=== PATIENT | female | born 1960 | race Caucasian/White ===

== ENCOUNTER 2019-01-07 17:38 | Inpatient (IN) | payer OTHER ==
[~2019-01-07] VITALS: Ht 167.6 cm; Wt 56.5 kg
[~2019-01-07 17:38] MED LIST: ATORVASTATIN CA20 M1 PO; DIVALPROEX SOD125 M1 PO; FLUVOXAMINE MA100 MG PO; FLUVOXAMINE50 MG PO; LISINOPRIL10 M1 PO; MEMANTINE HCL10 MG PO; RIVASTIGMINE1 EACH T; SEROQUEL25 MG PO; VITAMIN D32000 UNI1 PO
[2019-01-07 17:39] VITALS: BP 100/51
[2019-01-07] MEDS ORDERED: DEPAKOTE DR500 MG PO (18:10)
[2019-01-07] MEDS ORDERED: EXELON1 EAC1 T (18:11)
[2019-01-07 18:25] LABS: BASO % 0.4 % (0.0-1.0); EOS # 0.1 10*3/uL (0.0-0.4); EOS % 0.9 % (1.0-4.0); HEMATOCRIT 35.6 % (37.0-47.0); HEMOGLOBIN 11.8 g/dl (12.0-16.0); LYMPH % 26.3 % (27.0-41.0); MEAN CELL VOLUME 100.6 fl (81.0-99.0); MEAN CORPUSCULAR HGB 33.3 pg (27.0-31.0); MEAN CORPUSCULAR HGB CONC 33.1 g/dl (33.0-37.0); MONO # 0.7 10*3/uL (0.1-1.0); MONO % 8.8 % (3.0-9.0); NEUT # 4.8 10*3/uL (2.3-7.9); NEUT % 62.6 % (47.0-73.0); PLATELET COUNT AUTOMATED 299 10*3/uL (130-400); RED BLOOD COUNT 3.54 10*6/uL (4.10-5.10); RED CELL DISTRI WIDTH 12.2 % (0-14.5); WHITE BLOOD COUNT 7.6 10*3/uL (4.8-10.8)
[2019-01-07 18:40] LABS: ACT PARTIAL THROMBO TIME 26.3 SECONDS (20.0-32.1)
[2019-01-07 18:43] LABS: ALKALINE PHOSPHATASE 82 U/L (45-117); BUN 10 mg/dl (7-24); CHLORIDE 104 mmol/L (98-107); CREATININE 0.67 mg/dL (0.55-1.02); LIPASE 103 U/L (73-393); POTASSIUM 4.2 mmol/L (3.5-5.1); SGOT/AST 27 IU/L (3-35); SGPT/ALT 15 U/L (12-78); SODIUM 139 mmol/L (136-145); TOTAL PROTEIN 6.6 gm/dL (6.4-8.2)
[2019-01-07 18:48] LABS: ACETAMINOPHEN (TYLENOL) < 5.0 ug/ml (10-30); ETHYL ALCOHOL < 3.0 mg/dl (<3); TROPONIN I < 0.015 ng/ml (<0.045)
--- NOTE | 2019-01-07 21:40 | NUR ---
Straight cath for urine specimen obtianed with assits of TARA Hampton. Depend changed and warm blankets provided. Tolerated well. Urine sent.
[2019-01-07 21:50] LABS: BILIRUBIN NEGATIVE (NEGATIVE); BLOOD 1+ (NEGATIVE); CLARITY SL CLOUDY (CLEAR); COLOR YELLOW (YELLOW); GLUCOSE NEGATIVE (NEGATIVE); KETONE NEGATIVE (NEGATIVE); LEUKO ESTERASE 3+ (NEGATIVE); NITRITE NEGATIVE (NEGATIVE); PH 6.5 (5.0-9.0); SPECIFIC GRAVITY 1.015 (1.005-1.030); UROBILINOGEN 0.2 E.U./dl (0.2-1.0)
[2019-01-07 22:05] LABS: BACTERIA 2+
[2019-01-07 22:06] LABS: WBC 21-30 wbc/hpf (0-5)
[2019-01-07 22:11] LABS: URINE AMPHETAMINES < 1000 (1000ng/ml); URINE BARBITURATES < 200 (200ng/ml); URINE BENZODIAZEPINES < 200 (200ng/ml); URINE CANNABINOIDS (THC) < 50 (50ng/ml); URINE COCAINE < 300 (300ng/ml); URINE METHADONE < 300 (300ng/ml); URINE OPIATES < 300 (300ng/ml)
[2019-01-07 22:15] LABS: URINE PHENCYCLIDINE < 25 (25ng/ml)
--- NOTE | 2019-01-07 22:59 | NUR ---
ATTEMPTED TO REACH U TO ADVISE READY FOR PATIENT TO BE TRANSPORTED.
[2019-01-07 23:04] VITALS: BP 102/56
--- NOTE | 2019-01-07 23:20 | NUR ---
Report to [facility]. Bed 314-2 for intermittent explosive disorder under Dr Singer.
[2019-01-07] MEDS ORDERED: ZOLOFT25 MG PO (23:32)
[2019-01-07] MEDS ORDERED: ARICEPT10 M1 PO (23:33)
[2019-01-07] MEDS ORDERED: COGENTIN0.5 MG PO (23:35)
[2019-01-07] MEDS ORDERED: DEPAKOTE SPRIN125 MG PO (23:38)
[2019-01-07] MEDS ORDERED: REMERON15 M2 PO (23:39)
[2019-01-07] MEDS ORDERED: HYDROXYZINE HCL25 MG PO (23:41)
[2019-01-07] MEDS ORDERED: COLACE100 MG PO (23:42)
[2019-01-07] MEDS ORDERED: CLARITIN10 MG PO (23:43)
[2019-01-07] MEDS ORDERED: TUSSIN DM 10 M237 M1 PO (23:45)
[2019-01-07] MEDS ORDERED: HALDOL5 MG/1 ML IM (23:47)
--- NOTE | 2019-01-07 23:50 | NUR ---
BEATRIZERIC THAKKAR a 58 year old F admitted via stretcher from the EMERGENCY ROOM as a voluntary admission PER KACIE, KARL HENDERSON. Arrived on unit at 2345. ALLERGIES: NKA. Vital signs are: 98.3-70-16 126/65. VERBAL CONSENT RECEIVED PRIOR TO ADMISSION FROM [facility] FOR CONSENT TO VOLUNTARY ADMISSION & HOSPITALIZATION, The Authorization For The Release of Medical Information, Hospitalization, Consent and Release Forms/Receipt of Rights, Acknowledgement of Advance Directive Information, Behavioral Health Consent Form, and Informed Consent of Medications. Admitted under the services of Dr. CARSON GROSSNIGEL WITH ADMITTING DIAGNOSIS OF INTERMITTENT EXPLOSIVE DISORDER. A search was conducted and hazardous articles were removed. Client was oriented to the unit. PT WAS MEDICATED WITH 2 MG ATIVAN IM IN ER TO OBTAIN URINE VIA STRAIGHT CATH. MILDLY SEDATED ON ADMISSION. PT IN & OUT OF ORIENTATION TO SELF. UNABLE TO ANSWER QUESTIONS OR COMPLETE ANY ADMISSION FORMS OR MINI MENTAL STATUS ASSESSMENT. JUST SMILES WHILE STARING AT STAFF. PER ER REPORT, PT WAS ALERT TO SELF AT TIMES, WALKING AROUND EARLIER & CONFUSED. RESISTANT AT TIMES & FOLLOWS SIMPLE COMMANDS AT TIME. ALSO STATED THAT PER NEWS DIRECTOR, THIS IS BASELINE FOR PT & SHE IS JUST A LITTLE OFF. PT WAS ALSO MEDICATED WITH CEFTIN IM IN ER FOR UTI. PT WAS INCONTINENT OF URINE WHEN SHE ARRIVED ON UNIT. KERRI BOLDEN RN
[2019-01-08 01:01] VITALS: BP 126/65
--- NOTE | 2019-01-08 01:49 | NUR ---
DR REES NOTIFIED OF MEDICAL CONSULT & MED REC READY FOR REVIEW. CONSULT TO BE PLACED UNDER DR BOLIVAR.
--- NOTE | 2019-01-08 02:00 | NUR ---
DR REES ON UNIT TO SEE PT FOR MEDICAL CONSULT
--- NOTE | 2019-01-08 06:03 | NUR ---
PT HAS SLEPT SINCE ARRIVAL ON THE UNIT. SHE HAS HAD A FEW VERY BRIEF AWAKENINGS OF MOVING AROUND IN BED.
[2019-01-08 07:17] LABS: CHOLESTEROL 128 mg/dL (<200); HDL CHOLESTEROL 48 mg/dl (40-60); LDL CHOLESTEROL 69 mg/dL (9-159); TRIGLYCERIDES 55 mg/dl (<150); VLDL CHOLESTEROL 11 mg/dL (6-40)
[2019-01-08 07:49] VITALS: BP 118/62
--- NOTE | 2019-01-08 08:15 | NUR ---
Treatment Plan meeting with Dr. Singer, RN, AT, and Process Excellence Manager. Plan for discharge next week. Pt. came to [facility] from [facility] [place]. Will reach out to facility today to discuss discharge Plans.
--- NOTE | 2019-01-08 10:19 | NUR ---
Met with pt this AM who was non-verbal. This FRAMING AND HANGING-S was unable to gain pt's attention. Pt did not make eye contact nor respond in any way to this medical writer's attempt at engaging pt in conversation.
--- NOTE | 2019-01-08 10:22 | NUR ---
Left a voicemail message for pt's DPOAHC Samara Keating requesting a return call.
--- NOTE | 2019-01-08 11:45 | NUR ---
AM GROUP PT WAS PRESENT FOR MORNING GROUP THERAPY MOVING SELF AROUND IN [facility]. PT WAS ABLE TO UNHOOK THE BELT SEVERAL TIMES. PT WENT TO A TABLE WHERE A PT WAS BEADING AND PEER SHARED THE BEADS WITH PT. PT PROMPTLY GRABBED A HANDFUL AND THREW THEM IN HER MOUTH. MOST WERE KNOCKED AWAY BY THIS BATTER DEPOSITOR AND NURSES WERE NOTIFIED AND ABLE TO GET THE REMAINING BEADS OUT OF PT MOUTH. PEER FELT THAT IT WAS HIS FAULT AND WAS REASSURED THAT IT WAS NOT.
--- NOTE | 2019-01-08 12:29 | NUR ---
REVIEW AND CLINICALS FAXED TO [facility] AT [phone].
--- NOTE | 2019-01-08 14:43 | NUR ---
Spoke with Kimberley at the [facility] at [place]. Pt. will return to facility at discharge. Clinical Updates faxed to facility [phone].
--- NOTE | 2019-01-08 15:41 | NUR ---
PM GROUP PT DID NOT ATTEND AFTERNOON GROUP THERAPY. PT WAS BEING SHOWERED. PT IS UNABLE TO PARTICIPATE AT THIS TIME DUE TO COGNITIVE IMPAIRMENT.
--- NOTE | 2019-01-08 17:57 | NUR ---
Patient resting quietly with no c/o discomfort. Respirations easy and regular. Vital signs stable. No overt distress. GIVENS,JACEY
[2019-01-08 20:00] VITALS: BP 110/60
--- NOTE | 2019-01-08 22:28 | NUR ---
P-RESTLESS, CONFUSED. I- REORIENT AND PRESENT REALITY. PROVIDE 1:1 WITH THERAPEUTIC INTERVENTIONS. PROVIDE DIVERSION TECHNIQUES TO HELP CALM. ENCOURAGE MEDICATION COMPLIANCE AND EDUCATE. MONITOR SLEEP. R- PT ALERT TO SELF, CONFUSED. PT UNRECEPTIVE TO INTERVENTIONS WHEN PRESENTED, REMAINS RESTLESS BUT OTHERWISE CALM. PT ISOLATIVE/WITHDRAWN TO SELF WITH MINIMAL VERBALIZATION DURING INTERACTIONS, SPEECH NONSENSICAL WITH INTERMITTENT CURSING. PT COMPLIANT WITH MEDICATION PASS WITH ENCOURAGEMENT, UNABLE TO EDUCATE DUE TO COGNITION. PT VOICES NO SI/HI, HALLUCINATIONS, OR PAIN. NO NOTED RESPONDING TO INTERNAL STIMULI BUT IS VERY PREOCCUPIED. PT MOBILZES SELF THROUGHOUT UNIT WITH A MERRY WALKER, INCONTINENT/CONTINENT OF BOWEL AND BLADDER, ALL NEEDS ANTICIPATED BY STAFF. ATE HS SNACK. P- CONTINUE TO MONITOR MOODS AND BEHAVIORS. PROVIDE 1:1 AND REORIENT WITH REALITY PRESENTATION NEEDED. ENCOURAGE MEDICATION COMPLIANCE. MAINTAIN Q 15 MIN CHECKS.
--- NOTE | 2019-01-08 23:34 | NUR ---
PATIENT INCONTINENT OF BOWEL AND BLADDER, RESISTIVE WITH HANDS ON CARE, COMBATIVE. PT ATTEMPTED TO STRIKE AND KICK AT STAFF, ALSO CURSING AND CALLED STAFF "WHORES". PT UNABLE TO BE REDIRECTED, STAFF ASSIST X3. PT RECIEVED PRN ATIVAN 1MG PO AT 2328 . PT MEDICATION COMPLIANT WITHOUT DIFFICULTY, WILL CONTINUE TO MONITOR FOR EFFECTIVENESS.
--- NOTE | 2019-01-09 01:26 | NUR ---
PATIENT UP IN NANCY CHAIR ACROSS FROM NURSES STATION DUE TO LACK OF SAFETY AWARENESS, CALM DEMEANOR NOTED. PRN ATIVAN GIVEN AT 2328 EFFECTIVE AT THIS TIME.
--- NOTE | 2019-01-09 04:43 | NUR ---
24 HOUR CHART CHECK COMPLETED.
--- NOTE | 2019-01-09 05:02 | NUR ---
PATIENT SLEPT <1 HOUR THIS SHIFT. AUDITORY AND VISUAL HALLUCINATIONS SUSPECTED PATIENT WAS OBSERVED TO TALK TO UNSEEN OTHERS WITH INTERMITTENT LAUGHTER. PT ALSO SEEN BY STAFF TO TAKE HER BLANKET IN A BALL AND CARESS IT WHILE STATING "OH YOU CUTE LITTLE BABY". PT CONTINUES TO BE UNRECEPTIVE TO REORIENTION OR REDIRECTION. NO SIGNS OR SYMPTOMS OF DISTRESS NOTED.
[2019-01-09 07:31] VITALS: BP 130/75
--- NOTE | 2019-01-09 09:57 | NUR ---
DR. BOLIVAR ON UNIT TO ASSESS PATIENT.
--- NOTE | 2019-01-09 11:51 | NUR ---
AM GROUP/CARDS/MUSIC PT IN ATTENDANCE BUT SLEEPING ON AND OFF IN RECLINER. PT PLEASANTLY CONFUSE WHEN AWAKE.
--- NOTE | 2019-01-09 15:35 | NUR ---
PM GROUP/MOVIE PT IN ATTENDANCE AND PARTICIPATING BY LOOKING THROUGH MAGAZINES AND WATCHING THE MOVIE EVERY ONCE IN A WHILE. PT CONTINOUSLY SPEAKING WITH FLIGHT OF THOUGHTS. PT TALKING WITH SELF AT TIMES BUT REMAINS PLEASANT.
--- NOTE | 2019-01-09 16:52 | NUR ---
PT ALERT TO SELF. CONFUSED. STABLE MOOD. INTERACTIVE WHEN APPROACHED. NO HALLUCIANTIONS OR DELUSIONS NOTED. FALL PRECAUTIONS MAINTAINED. Q15 MINUTE SAFETY CHECKS MAINTAINED. MEDICATION COMPLIANT WITHOUT DIFFICULTY. UNABLE TO EDUCATE ON MEDICATIONS DUE TO COGNITIVE IMPAIRMENT. WITHDRAWN TO SELF. PT AMBULATED WITH 1 ASSIST. SEE [facility] FLOWSHEET FOR SPECIFIC MONITORING.
[2019-01-09 19:54] VITALS: BP 120/60
--- NOTE | 2019-01-10 00:21 | NUR ---
P-RESTLESS, CONFUSED. I- REORIENT AND PRESENT REALITY. PROVIDE 1:1 WITH THERAPEUTIC INTERVENTIONS. PROVIDE DIVERSION TECHNIQUES TO HELP CALM. ENCOURAGE MEDICATION COMPLIANCE AND EDUCATE. MONITOR SLEEP. R- PT ALERT TO SELF, CONFUSED. PT UNRECEPTIVE TO INTERVENTIONS WHEN PRESENTED, REMAINS RESTLESS BUT OTHERWISE CALM THIS SHIFT. PT ISOLATIVE/WITHDRAWN TO SELF WITH MINIMAL VERBALIZATION DURING INTERACTIONS, SPEECH NONSENSICAL WITH INTERMITTENT CURSING. PT REFUSED HS DOSE OF LACTULOSE, COMPLIANT WITH REMAINING MEDICATIONS WITH ENCOURAGEMENT CRUSHED IN PUDDING, UNABLE TO EDUCATE DUE TO COGNITION. PT VOICES NO SI/HI, HALLUCINATIONS, OR PAIN. NO NOTED RESPONDING TO INTERNAL STIMULI. PT INCONTINENT OF BOWEL AND BLADDER, ALL NEEDS ANTICIPATED BY STAFF. NO AGGRESSION/COMBATIVE BEHAVIOR NOTED AT THIS TIME. P- CONTINUE TO MONITOR MOODS AND BEHAVIORS. PROVIDE 1:1 WITH REORIENTATION AND REDIRECTION NEEDED. ENCOURAGE MEDICATION COMPLIANCE. MAINTAIN Q 15 MIN CHECKS.
--- NOTE | 2019-01-10 01:26 | NUR ---
24 HOUR CHART CHECK COMPLETED.
--- NOTE | 2019-01-10 05:28 | NUR ---
PATIENT OBSERVED ON Q 15 MIN CHECKS TO HAVE SLEPT APPROX 3 HOURS THIS SHIFT UNINTERRUPTED. PATIENT RESTING IN BED QUIETLY AT THIS TIME. NO SIGNS OR SYMPTOMS OF DISTRESS NOTED.
[2019-01-10 07:31] VITALS: BP 116/64
--- NOTE | 2019-01-10 10:45 | NUR ---
DR. BOLIVAR ON UNIT TO ASSESS PATIENT, NOTIFIED OF UA RESULTS.
--- NOTE | 2019-01-10 15:33 | NUR ---
Shift chart check completed.
--- NOTE | 2019-01-10 18:13 | NUR ---
P: CONFUSION; VISUAL AND TACTILE HALLUCINATION- GRABBING INTO THE AIR AND RUBBING TRAY TABLE. MOOD IS IRRITABLE. NON COMPLAINT WITH MORNING MEDICATIONS WITH ENCOURAGEMENT. I: ONE ON ONE, REDIRECTION, SPACE PROVIDED. R: INEFFECTIVE. PATIENT CONTINUES TO REFUSE MEDICATION WITH ENCOURAGEMENT. PATIENT IS ALERT TO PERSON WITH CONFUSION. LONG/SHORT TERM MEMORY DEFICITS. MOOD IS IRRITABLE; HOPELESS/HELPLESS. RESPONDING TO INTERNAL STIMULI. NO VOICED STATEMENT OF HI/SI OR PAIN. Q 15 MINUTE SAFETY CHECKS MAINTAINED. DID NOT PARTICIPATE IN GROUP SESSION. CONTINUE TO MONITOR FOR INCREASED CONFUSION AND WANDERING. PROVIDE ONE ON ONE AND REDIRECTION NEEDED. P:
[2019-01-10 20:20] VITALS: BP 105/63
--- NOTE | 2019-01-10 23:21 | NUR ---
P-RESTLESS, CONFUSED. I- REORIENT AND PRESENT REALITY. PROVIDE 1:1 WITH THERAPEUTIC INTERVENTIONS. ENCOURAGE MEDICATION COMPLIANCE AND EDUCATE. MONITOR SLEEP. R- PT ALERT TO SELF, CONFUSED PER PATIENT'S BASELINE. PT UNRECEPTIVE TO INTERVENTIONS, REMAINS RESTLESS/PREOCCUPIED BUT OTHERWISE CALM THIS SHIFT. PT ISOLATIVE/WITHDRAWN TO SELF WITH MINIMAL VERBALIZATION DURING INTERACTIONS, SPEECH NONSENSICAL WITH INTERMITTENT CURSING. PT COMPLIANT WITH REMAINING MEDICATIONS WITH ENCOURAGEMENT CRUSHED IN PUDDING, UNABLE TO EDUCATE DUE TO COGNITION. PT VOICES NO SI/HI, HALLUCINATIONS, OR PAIN. NO NOTED RESPONDING TO INTERNAL STIMULI. PT INCONTINENT OF BOWEL AND BLADDER, ALL NEEDS ANTICIPATED BY STAFF. MINIMAL AGITATION NOTED DURING TIMES OF HOC, STAFF ASSIST X2. NO SIGNS OR SYMPTOMS OF DISTRESS NOTED. P- CONTINUE TO MONITOR MOODS AND BEHAVIORS. PROVIDE 1:1 WITH REORIENTATION AND REDIRECTION NEEDED. ENCOURAGE MEDICATION COMPLIANCE. MAINTAIN Q 15 MIN CHECKS.
--- NOTE | 2019-01-11 05:35 | NUR ---
PT PREOCCUPIED THIS SHIFT, REFUSED TO GO TO BED WHEN ASSISTED BY STAFF. PT SAT QUIETLY ACROSS FROM NURSES STATION BY STAFF DUE TO LACK OF SAFETY AWARENESS. PT CALM, QUIET. SLEPT <1 HOUR THIS SHIFT. INCONTINENT CARE PROVIDED WITHOUT DIFFICULTY. NO SIGNS OR SYMPTOMS OF DISTRESS NOTED.
[2019-01-11 07:20] VITALS: BP 131/63
--- NOTE | 2019-01-11 10:22 | NUR ---
[facility] plan meeting held with Dr Singer, RN, MEDICAL MICROBIOLOGIST-S, and camp coordinator. Discharge date undetermined at this time. Will return to the [facility] [place] upon discharge.
--- NOTE | 2019-01-11 11:36 | NUR ---
AM GROUP PT DID NOT ENTER GROUP UNTIL 10 MINUTES LEFT. PT DECLINED ANY ACTIVITY AND JUST WANTED TO LISTEN TO COUNTRY MUSIC. PT EXHIBITED NO ANXIETY WHILE IN GROUP.
--- NOTE | 2019-01-11 11:43 | NUR ---
AM GROUP PT WAS PRESENT FOR MORNING GROUP THERAPY BUT IS UNABLE TO PARTICIPATE DUE TO COGNITIVE IMPAIRMENT. PT SAT AT TABLE WITH PEERS AND WAS EXPOSED TO LIGHT THERAPY FOR 30 MINUTES. PT WOULD OCCASIONALLY SPEAK OUT OF CONTEXT BUT WAS OTHERWISE PLEASANT.
--- NOTE | 2019-01-11 12:26 | NUR ---
PER FAX FROM [facility], IP APPROVED 01/07-01/12. NEXT REVIEW DATE IS 01/13. REF NUMBER [id number]
--- NOTE | 2019-01-11 15:15 | NUR ---
Patient not appropriate for Occupational Therapy evalaution at this time as he is hallucinating. Zahraa Alaniz OTR/L
--- NOTE | 2019-01-11 15:36 | NUR ---
Clinical update faxed to Kimberley at [facility] [place].
--- NOTE | 2019-01-11 15:37 | NUR ---
PM GROUP PT WAS PRESENT FOR AFTERNOON GROUP THERAPY RECLINED IN A NANCY CHAIR OBSERVING PEERS AND WATCHING TV. PT WAS PLEASANT AND SMILING AND ATTEMPTED CONVERSATION.
--- NOTE | 2019-01-11 20:26 | NUR ---
EVENING/RELAXTION/STORY/MUSIC PT ATTENDED AND PARTICIPATED BY ENGAGING IN PICTURE BOOK THIS STAFF READING TO PATIENTS. PT STATES "OH THAT LION IS COOL" PT ON TOPIC FOR A MOMENT WITH CONVERSATION. PT WILL CONTINUE TO ATTEND.
[2019-01-11 20:40] VITALS: BP 120/86
--- NOTE | 2019-01-12 00:46 | NUR ---
P-RESTLESS, CONFUSED. I- REORIENT AND PRESENT REALITY. PROVIDE 1:1 WITH THERAPEUTIC INTERVENTIONS. PROVIDE DIVERSION TECHNIQUES TO HELP CALM. ENCOURAGE MEDICATION COMPLIANCE AND EDUCATE. MONITOR SLEEP. R- PT ALERT TO SELF, CONFUSED. PT UNRECEPTIVE TO INTERVENTIONS WHEN PRESENTED, REMAINS RESTLESS BUT OTHERWISE CALM THIS SHIFT. BRIGHTER AFFECT NOTED THIS SHIFT. MOOD STABLE, HOPELESS/HELPLESS. PT ISOLATIVE/WITHDRAWN TO SELF WITH MINIMAL VERBALIZATION DURING INTERACTIONS, SPEECH NONSENSICAL. PT REFUSED HS DOSE OF LACTULOSE, COMPLIANT WITH REMAINING MEDICATIONS WITH ENCOURAGEMENT CRUSHED IN PUDDING, UNABLE TO EDUCATE DUE TO COGNITION. PT VOICES NO SI/HI, HALLUCINATIONS, OR PAIN. NO NOTED RESPONDING TO INTERNAL STIMULI. PT INCONTINENT OF BOWEL AND BLADDER, ALL NEEDS ANTICIPATED BY STAFF. NO AGGRESSION/COMBATIVE BEHAVIOR NOTED AT THIS TIME. P- CONTINUE TO MONITOR MOODS AND BEHAVIORS. PROVIDE 1:1 WITH REORIENTATION AND REDIRECTION NEEDED. ENCOURAGE MEDICATION COMPLIANCE. MAINTAIN Q 15 MIN CHECKS.
--- NOTE | 2019-01-12 05:33 | NUR ---
24 HOUR CHART CHECK COMPLETED.
--- NOTE | 2019-01-12 06:21 | NUR ---
PATIENT OBSERVED ON Q 15 MIN CHECKS TO HAVE SLEPT APPROX 6 HOURS WITH NO AWAKENINGS OR SIGNS OR SYMPTOMS OF DISTRESS NOTED.
[2019-01-12 08:06] VITALS: BP 114/57
[2019-01-12 08:06] LABS: RHEUMATOID ARTHRITIS FACTOR <10.0 IU/mL (0.0-13.9)
--- NOTE | 2019-01-12 08:30 | NUR ---
Treatment Plan meeting with Dr. Singer, RN, AT, SW and [employer]. Plan for discharge Early Next week. Pt. to return to the [facility] [place] at discharge.
--- NOTE | 2019-01-12 11:37 | NUR ---
AM GROUP PT WAS PRESENT FOR MORNING GROUP THERAPY SITTING IN A NANCY CHAIR AT A TABLE WITH PEERS. PT MADE NO CONVERSATION AND IS UNABLE TO PARTICIPATE AT THIS TIME DUE TO COGNITIVE IMPAIRMENT. PT WILL SMILE AND RESPOND NONSENSICALLY WHEN SPOKEN TO, PT IS PLEASANTLY CONFUSED.
--- NOTE | 2019-01-12 14:15 | NUR ---
Occupational Therapy evaluation completed on 3 with full eval to follow. Precautions include fall risk,inconsistant performance level/ responsiveness,assist for transfers, all ADLs, high complexity level 92252 via chart review, testing and evaluation. Recommend OT per POC and 24 hr supervision and assist. Thank you. Zahraa Alaniz OTR/L
--- NOTE | 2019-01-12 14:44 | NUR ---
Patient resting quietly with no c/o discomfort. Respirations easy and regular. Vital signs stable. No overt distress. GIVENS,JACEY
--- NOTE | 2019-01-12 15:49 | NUR ---
PM GROUP PT WAS PRESENT FOR AFTERNOON GROUP THERAPY AND SITTING AT THE TABLE. PT WAS TALKING MOSTLY NONSENSICAL BUT DID STATE, "YOU NEED TO PICK THAT BABY UP, SHE'S GOING TO GET HURT." TO A PEER THAT HAD PUT THE BABY DOLL ON THE TABLE. PT WAS NOT AGITATED OR AGGRESSIVE WHILE IN GROUP.
[2019-01-12 20:00] VITALS: BP 113/68
--- NOTE | 2019-01-12 20:25 | NUR ---
EVENING/BINGO/STORY PT IN ATTENDANCE AND PARTICIPATED TO BEST OF ABILITY BY ENGAGING IN STORY AND SOME CONVERSATION. PT CONVERSATION RELATING MORE TO TOPIC THAN IN PRIOR GROUPS. PT ALSO USING CRAYONS TO MAKE LUNA ON PAPER FOR A SHORT PERIOD OF TIME. PT WILL CONTINUE TO ATTEND AND BE ENCOURAGED TO PARTICIPATE TO BEST OF PT ABILITY.
--- NOTE | 2019-01-12 23:33 | NUR ---
24 HR chart check completed.
--- NOTE | 2019-01-13 05:35 | NUR ---
PT WAS SHOWERED PRIOR TO BED & STATED, "IT FELT REALLY GOOD". HAS SLEPT QUIETLY IN A NANCY CHAIR WITH TRAY OFF DIRECTLY ACROSS FROM NURSING STATION.SLEPT PAST [phone].
--- NOTE | 2019-01-13 07:25 | NUR ---
OT NOTE Pt was seen this A.M. 1:1 for 20 minute OT session with CERTIFIED MEDICAL TECHNICIAN and nursing staff present for observation only. Upon arrival pt was sitting upright in the w/c in the dining room. Pt identified by name and and had no complaints at this time. Pt was taken to her bedroom where she completed functional mobility into the bathroom with Jewel CORTEZ with bouts of unsteady gait due to quick turning due to confusion with commands presented. Pt transferred on/off standard commode with Jewel due to poor safety alignment with commode and transferring off low surface. Pt then stood sink side while washing her hands and face with Jewel for assist with sequencing. Throughout entire session extra time was given due to pt being able to follow one step commands and slow rate of performance. Pt was left sitting upright in the w/c in the dining room under [facility] staff supervision and body alarm activated for safety. Continue with rec D/C plan to return to [facility] or LTC with 24 hour supervision/assist. ZACARIAS Mohamud/Lion
[2019-01-13 07:45] VITALS: BP 115/76
--- NOTE | 2019-01-13 08:30 | NUR ---
Treatment Plan meeting with Dr. Singer, RN, AT, SW and Road Design Draftsperson. Plan for discharge next week. Pt. came to [facility] from the [facility].
--- NOTE | 2019-01-13 09:42 | NUR ---
Patient was making proper eye contact with this engineering writer this AM. When this engineering writer commented to pt that pt's sweater looked pretty and warm, pt smiled and stated, "I like it too," as patient touched her sweater. Pt did not make any other comments while this engineering writer spoke to her, but patient did continue to smile.
--- NOTE | 2019-01-13 11:48 | NUR ---
PATIENT IS ALERT TO SELF, ABLE TO RECALL HER NAME AND HAS CONFUSION. LONG/SHORT TERM MEMORY DEFICITS. NO RESPONSE TO INTERNAL STIMULI OBSERVED. NO VOICED STATEMENT OF HI/SI OR PAIN. 1 PERSON ASSIST WITH ACTIVITIES OF DAILY LIVING, CONTINENT OF BOWEL AND BLADDER. SET UP FOR MEALS, INTAKES VARY WITH MUCH ENCOURAGE. MEDICATION COMPLAINT. Q 15 MINUTE SAFETY CHECKS MAINTAINED. AMBULATORY WITH STEADY GAIT. PATIENT RECALL VERBAL CUEING AND PHYSICAL GUIDANCE WITH HOLDING HAND FOR DIRECTIONS WITH PROVIDING CARE. NO AGGRESSION WITH TOILETING NEEDS. PLEASANT DEMEANOR AND SMILING DURING MORNING INTERVIEW. CONTINUE TO MONITOR FOR AGGRESSION. PROVIDE ONE ON ONE AND REDIRECTION NEEDED.
--- NOTE | 2019-01-13 11:49 | NUR ---
AM GROUP/MUSIC AND LIGHT THERAPY PT WAS PRESENT FOR MORNING GROUP THERAPY BUT IS UNABLE TO PARTICIPATE DUE TO COGNITIVE IMPAIRMENT. PT IS NONVERBAL MOSTLY. PT WAS PLEASANT AND OBSERVANT DURING GROUP AND EXHIBITED NO AGITATION OR AGGRESSION
[2019-01-13 13:04] LABS: LEAD BLOOD 1 ug/dL (0-4)
--- NOTE | 2019-01-13 15:35 | NUR ---
PM GROUP PT WAS PRESENT FOR AFTERNOON GROUP THERAPY BUT IS UNABLE TO PARTICIPATE DUE TO COGNITIVE IMPAIRMENT. PT DOES NOT SPEAK AND STARES INTO SPACE. PT WOULD OCCATIONALLY LOOK AT ME AND RETURN MY SMILE.
--- NOTE | 2019-01-13 15:53 | NUR ---
Shift chart check completed.
[2019-01-13 20:00] VITALS: BP 129/72
--- NOTE | 2019-01-13 20:22 | NUR ---
24 HR chart check completed.
[2019-01-13 21:08] LABS: MERCURY None Detected ug/L (0.0-14.9)
--- NOTE | 2019-01-13 22:30 | NUR ---
PT HAS BEEN SITTING IN THE DINING ROOM QUIETLY IN A NANCY CHAIR. KEEPS TO HERSELF & IS LIMITED VERBALLY. ALERT TO PERSON ONLY. DOES MAKE EYE CONTACT & SMILES WITH A NOTED BRIGHTER AFFECT. NO SIGNS/SYMPTOMS OF SENSORY DISTURBANCE. COMPLIANT WITH HANDS ON CARE WHEN ASSISTED. NO AGITATION. COMPLIANT TAKING MEDICATIONS CRUSHED & MIXED IN PUDDING TAKING VERY TINY BITES. PREFERS TO SIT & SLEEP IN A NANCY CHAIR.
--- NOTE | 2019-01-14 05:51 | NUR ---
PT HAS SLEPT PAST 2314
--- NOTE | 2019-01-14 07:45 | NUR ---
OT NOTE Pt was seen this A.M. 1:1 for 30 minute OT session with nursing staff present for observation only. Upon arrival pt was sitting upright in the w/c in the dining room. Pt identified by name and and had no complaints at this time. Pt was taken to her room where she completed sit to stand transfer from chair level with CGA for safety followed by functional mobility into the bathroom with Jewel MALTED MILK MIXER due to bouts of unsteady gait. Pt transferred on/off standard commode with Jewel for assist with safety, sequencing, and alignment. Pt then stood sink side while washing her hands and face with Jewel for assist with following commands and sequencing. Pt responded best to one step commands throughout session still occasionally requiring a command to be repeated multiple times before processing. Pt's breakfast tray then arrived which she required maxA for set up of tray. Pt was able to complete self feeding with SBA and occasional verbal prompts for attention to task. Pt did not want any fluids at this time, resulting in no observation for drinking. Pt was left sitting upright in the w/c in the dining room under [facility] staff supervision. Continue with rec D/C plan to return to [facility] or LTC with 24 hours supervision/assist. ZACARIAS Mohamud/Lion
[2019-01-14 08:00] VITALS: BP 118/70
--- NOTE | 2019-01-14 10:39 | NUR ---
PT PLEASANT COOPERATIVE WITH CARE. TRANSFERED VIA 1 ASSIST, SMILES WHEN SPOKEN TO UNABLE TO ANSWER SIMPLE QUESTIONS BUT WILL FOLLOW SIMPLE COMMANDS. PT IS ALERT TO SELF ONLY. NO SI/HI OR DELUSIONS NOTED. PT DOES MUTTER WORDS POSSIBLY TO HERSELF. CONTINUE TO MONITOR
--- NOTE | 2019-01-14 11:10 | NUR ---
Discharge Plans remain unchanged. Plan is for return to [facility] [place]. Plan for discharge Next week.
--- NOTE | 2019-01-14 11:35 | NUR ---
AM GROUP PT WAS PRESENT FOR MORNING GROUP THERAPY BUT IS UNABLE TO PARTICIPATE DUE TO COGNITIVE IMPAIRMENT. PT WAS CALM AND QUIET AND WOULD SMILE WHEN SPOKEN TO. PT EXHIBITED NO AGITATION WHILE IN GROUP
--- NOTE | 2019-01-14 12:52 | NUR ---
OT NOTE Pt was seen this P.M. for second OT session consisting of 15 minutes with nursing staff present for observation only. Upon arrival pt's lunch tray had arrived which she required maxA for set up of tray and completed self feeding with Jewel due to requiring assist for continuation and attention to task. When drinking from a regular cup pt had multiple episodes of spilling. Introduced pt to a two handled non spilling cup which she was able to manage with SBA. Educated nursing and nursing staff on use of cup and requested for pt to have at meal times for increased I. Pt was left sitting upright in the w/c in the dining room under [facility] staff supervision. COntinue with rec D/C plan to return to [facility] or LTC with 24 hour supervision/assist. ZACARIAS Mohamud/Lion
--- NOTE | 2019-01-14 15:35 | NUR ---
PM GROUP PT WAS PRESENT FOR AFTERNOON GROUP THERAPY SITTING IN A WHEELCHAIR MOVING ABOUT THE ROOM. PT IS NONVERBAL BUT WILL SMILE WHEN SPOKEN TO. PT EXHIBITED NO AGITATION OR AGGRESSION WHILE IN GROUP
[2019-01-14 20:21] VITALS: BP 110/59
[2019-01-14 20:55] VITALS: BP 110/59
--- NOTE | 2019-01-14 21:41 | NUR ---
24 HR chart check completed.
--- NOTE | 2019-01-15 00:40 | NUR ---
PT HAS BEEN SITTING IN THE DINING ROOM QUIETLY IN A NANCY CHAIR. KEEPS TO SELF & IS LIMITED VERBALLY. ALERT TO PERSON ONLY. MAKES EYE CONTACT & SMILES WITH A BRIGHTER AFFECT. NO SIGNS/SYMPTOMS OF SENSORY DISTURBANCE. COMPLIANT WITH HANDS ON CARE. CONTINENT OF URINE. NO AGITATION. COMPLIANT TAKING MEDICATIONS CRUSHED & MIXED IN PUDDING TAKING VERY TINY BITES. AMBULATES WITH 1 STAFF ASSIST & SLEPT IN BED TONIGHT.
--- NOTE | 2019-01-15 06:09 | NUR ---
PT HAS SLEPT QUIETLY PAST 2245.
--- NOTE | 2019-01-15 07:25 | NUR ---
OT NOTE Pt was seen this A.M. 1:1 for 25 minute OT session with LITIGATION PARTNER and nursing staff present for observation only. Upon arrival pt was supine in bed. Pt identified by name and and had no complaints at this time. Pt transferred supine to sit EOB with modA for assist with following commands, sequencing, and UB support. Sit to stand completed from bed level with Jewel followed by functional mobility into the bathroom with Jewel TUBING MACHINE TENDER. Pt presented with bouts of retrograde posture that required modA to correct and also presented with multiple times that she would "freeze" throughout mobility requiring max erbal instructions to continue. Pt transferred on/off standard commode with modA. Pants and underpants were doffed and donned with maxA due to pt being unable to follow one step commands given. Functional mobility then completed to the dining room with Jewel TUBING MACHINE TENDER and multiple episodes of retrograde posture that required modA to correct. Pt was left sitting upright in the dining room under [facility] staff supervision. Continue with rec D/C plan to return to [facility] or LTC with 24 hour supervisioin/assist. ZACARIAS Mohamud/Lion
[2019-01-15 07:58] VITALS: BP 115/60
--- NOTE | 2019-01-15 08:30 | NUR ---
Treatment Plan meeting held this a.m. with Dr. Singer RN, AT, [facility] and Mailroom Supervisor in attendance. Plan for discharge Next Friday/ with return to the [facility] [place] [facility] [place].
--- NOTE | 2019-01-15 11:37 | NUR ---
AM GROUP PT WAS PRESENT FOR MORNING GROUP THERAPY AND ACTUALLY ENGAGED IN SHORT CONVERSATION. PT WAS MUCH MORE ALERT AND SMILING. PT EXHIBITED NO AGITATION WHILE IN GROUP
--- NOTE | 2019-01-15 11:50 | NUR ---
PT WAS APPROVED FROM 01/12 -01/15 WITH NEXT REVIEW DATE 01/15. UPDATES FAXED TO [facility].
--- NOTE | 2019-01-15 14:04 | NUR ---
PATIENT REMAINS AT BASELINE CONFUSION, ALERT TO PERSON ONLY WITH ST/LT MEMORY GAPS. REORIENTATION INEFFECTIVE. MOOD PLEASANT. NO S/S OF INTERACTING WITH INTERNAL STIMULI. NO DELUSIONAL THOUGHT PROCESS NOTED. NO S/S OF DISTRESS NOTED. RESPS EVEN AND UNLABORED ON ROOM AIR. PT EATING AND DRINKING ADEQUATELY. GAIT STEADY WHILE AMBULATING, STAND BY ASSIST DUE TO UNSTEADY AT TIMES. ONE ASSIST WITH HANDS ON CARE DUE TO INCREASED CONFUSION DURING THESE TIMES. PATIENT PARTICIPATING IN GROUP THERAPIES. FALLING STAR PROGRAM IN PLACE. Q15 MINUTE CHECKS MAINTAINED FOR SAFETY.
--- NOTE | 2019-01-15 14:09 | NUR ---
Shift chart check completed.
--- NOTE | 2019-01-15 14:44 | NUR ---
Clinical Updates faxed to The [facility] at [place] Attn: Nurse [phone].
--- NOTE | 2019-01-15 15:20 | NUR ---
Patient was pleasant this afternoon. Pt smiled at this chart writer when pt was spoken to. Pt took this chart writer's hand and then stated, "Oh, your hand is cold." Attempted to engage pt in further conversation. Pt made a nonsensical statement and then began staring directly in front of herself.
--- NOTE | 2019-01-15 15:32 | NUR ---
PM GROUP PT ATTENDED AFTERNOON GROUP THERAPY AND PARTICIPATED BY "WORKING" A PUZZLE. PT WAS MUCH MORE TALKATIVE EVEN THOUGH SHE SPOKE IN WORD SALAD. PT EXHIBITED NO AGITATION OR AGGRESSION WHILE IN GROUP
[2019-01-15 19:54] VITALS: BP 119/63
--- NOTE | 2019-01-15 21:32 | NUR ---
Patient alert and oriented to self. Patient isolative to her room this evening. Patient pleasant and cooperative. Patient compliant with medications without any difficulty. Patient interacts with staff pleasantly. Provided 1:1 for emotional support. Plan to continue to encourage medication compliance and also continue to provide emotional support. Q 15 minute safety checks continued and maintained. See [facility] flowsheet for further documentation.
--- NOTE | 2019-01-16 00:08 | NUR ---
24 HR chart check completed.
--- NOTE | 2019-01-16 05:21 | NUR ---
Patient slept approx. 6 1/2 hours throughout shift. Q 15 minute safety checks continued and maintained.
[2019-01-16 07:34] VITALS: BP 110/48
--- NOTE | 2019-01-16 09:14 | NUR ---
MEDICATION COMPLIANT. MEDICATION EDUCATION NOT PROVIDED DUE TO COGNITIVE IMPAIRMENT. PT NOT ANSWERING QUESTIONS THIS AM. SITTING AT THE DINNINGROOM TABLE WITH NURSING STUDENTS. NO S/S OF PAIN OR DISTRESS NOTED. NO ADVERSE BEHAVIORS NOTED.
--- NOTE | 2019-01-16 11:44 | NUR ---
AM GROUP/BINGO/MUSIC PT IN ATTENDANCE AND PARTICIPATED BY SPENDING 1:1 WITH A STUDENT WHO ASSISTED PT IN PLAYING BINGO. PT SOMEWHAT ENGAGED AND OBSERVANT. PT WILL CONTINUE TO ATTEND AND BE ENCOURAGED TO PARTICIPATE TO BEST OF PT ABILITY IN FUTURE GROUP SESSIONS.
--- NOTE | 2019-01-16 15:46 | NUR ---
PM GROUP/LEISURE SKILLS PT IN ATTENDANCE AND PARTICIPATED BY WALKING 1:1 WITH THIS STAFF. PT SQUIRMING AROUND IN CHAIR AND THIS STAFF ASKED IF ANYTHING HURT AND PT REPLIED "YES, MY BUTT". THIS STAFF WALKED WITH PT IN [place] FOR SOME RELIEF. PT SMILING AND LAUGHING AT PEER IN HALLWAY. PT RELAXING REST OF GROUP EATING ICE CREAM AND WATCHING HALLMARK MOVIE.
[2019-01-16 19:37] VITALS: BP 111/54
--- NOTE | 2019-01-16 21:31 | NUR ---
CLIENT IS PLEASENT IN DININGROOM WITH PEERS. ATE SNACK. NONVERBAL WITH ME BUT SHOOK HEAD YES AN NO TO QUESTIONS. TOOK CRUSHED MEDICATION IN PUDDING. STOOD WITH ASSIST OF ONE. NO SIGNS OF HALLUCINATIONS OR DISCOMFORT. WILL CONTINUE TO MONITOR FOR CHANGES IN BEHAVIOR OR MOOD.
--- NOTE | 2019-01-17 05:26 | NUR ---
24 HR chart check completed. SLEPT WELL PAST 2200PM WITH MINIMAL AWAKENING
--- NOTE | 2019-01-17 06:30 | NUR ---
UP AND READY FOR DAY. SITTING IN NANCY CHAIR IN DININGROOM
[2019-01-17 07:15] VITALS: BP 106/62
--- NOTE | 2019-01-17 11:27 | NUR ---
AM GROUP/REMINISCE PT IN ATTENDANCE AND WOULD ENGAGE IN SOME CONVERSATION BY NODDING, SMILING, LAUGHING, OR SHORT ANSWERS LIKE "YES" AND "NO". PT SLEEPING ON AND OFF THORUGHOUT GROUP, AND DID PARTICIPATE IN "WHATS IN THE BAG GAME" BY UTILIZING TOUCH. PT WILL CONTINUE TO ATTEND AND PARTICIPATE TO BEST OF PT ABILITY.
--- NOTE | 2019-01-17 17:28 | NUR ---
MEDICATION COMPLIANT. MEDICATION EDUCATION NOT PROVIDED DUE TO COGNITIVE IMPAIRMENT. PT NOT ANSWERING QUESTIONS THIS AM. SITTING AT THE DINNINGROOM TABLE WITH PEERS AT THIS TIME. NO S/S OF PAIN OR DISTRESS NOTED. NO ADVERSE BEHAVIORS NOTED. SEE [facility] FOR SPECIFIC MONITORING.
[2019-01-17 19:33] VITALS: BP 118/66
--- NOTE | 2019-01-17 20:37 | NUR ---
SITTING UP IN DININGROOM. MINIMAL VERBAGE BUT LAUGHING AT JOKES AND CONVERSATION WE WERE HAVING WITH PEER. ATTEMPTED 1:1 BUT SHE REMAINED MUTE DURING THAT TIME. DOES SMILE AND NOD AT CONVERSATION. MEDICATION COMPLIANT WITH MUCH ENCOURAGEMENT
--- NOTE | 2019-01-17 21:24 | NUR ---
OUT OF BED AND ANXIOUS DUE TO ROOMMATES CONTINUALLY YELLING OUT. MOVED TO 311 BED
--- NOTE | 2019-01-18 06:26 | NUR ---
SLEPT WELL PAST 2230PM. MOVES SELF IN BED. REMAINS SELECTIVE ON VERBAGE
--- NOTE | 2019-01-18 06:27 | NUR ---
24 HR chart check completed.
--- NOTE | 2019-01-18 07:40 | NUR ---
DR. MONTALVO ON UNIT TO ASSESS PATIENT.
[2019-01-18 08:00] VITALS: BP 116/69
--- NOTE | 2019-01-18 08:00 | NUR ---
OT NOTE Pt was seen this A.M. 1:1 for 30 minute OT session with nursing staff present for observation only. Upon arrival pt was sitting upright in the w/c in the dining room. Pt identified by name and and had no complaints at this time. Pt completed simulated due to requesting to stay in the dining room, UB bathing and grooming with Jewel for constant verbal instructions with following commands, sequencing, and inital start of task. Pt's breakfast tray then arrived which she required maxA for set up of tray and then completed self feeding with SBA. All feeding was completed using proper utensils and drinks provided in two handled spill proof cup. Extra time given throughout due to slow rate of performance and processing commands. Pt was left sitting upright in the w/c in the dining room with body alarm activated for safety and under U staff supervision. COntinue with rec D/C plan to return to [facility] or LTC with 24 hour supervision/assist. ZACARIAS Mohamud/Lion
--- NOTE | 2019-01-18 08:30 | NUR ---
Per Treatment Plan meeting this a.m. Plan for discharge Fri/ with Return to The [facility] [place].
--- NOTE | 2019-01-18 09:43 | NUR ---
ALERT TO SELF. REFUSED PO MEDICATIONS. PT STATED "GET AWAY FROM ME I DONT WANT ANYTHING FROM YOU. YOU TAKE IT". PT STATING "THIS IS STUPID. I AM GETTING OUT OF HERE. GET AWAY FROM ME, LEAVE ME ALONE" PT SITTING IN W/C ANDATTEMPTING TO FLIP CHAIR BACKWARSDS. 1:1 PROVIDED AT THIS TIME WITH PT. THERAPEUTIC COMMUNICATION PROVIDED AND INEFFECTIVE. PT PLACED IN NANCY CHAIR WITHOUT TRAY AT THIS TIME TO PROMOTE SAFETY AWARENESS. 1:1 CONTINUES. WILL REAPPROACH PT AT A LATER TIME AND PLACE PT IN WHEELCHAIR AFTER PT IS ABLE TO REMAIN CALM.
--- NOTE | 2019-01-18 11:35 | NUR ---
AM GROUP/LIGHT AND MUSIC THERAPY PT WAS PRESENT FOR MORNING GROUP THERAPY. PT LISTENED TO MUSIC AND WAS LESS ANIMATED THIS MORNING THAN PREVIOUS DAYS. PT WOULD NOT EVEN SMILE WHEN SPOKEN TO . PT EXHIBITED NO AGITATION OR AGGRESSION WHILE IN GROUP
--- NOTE | 2019-01-18 15:25 | NUR ---
Shift chart check completed.
--- NOTE | 2019-01-18 15:42 | NUR ---
PM GROUP PT WAS PRESENT FOR AFTERNOON GROUP THERAPY BUT IS UNABLE TO PARTICIPATE DUE TO COGNITIVE IMPAIRMENT. PT SAT QUIETLY AND OBSERVED. PT EXHIBITED NO AGITATION OR AGGRESSION WHILE IN GROUP
[2019-01-18 19:12] VITALS: BP 140/70
--- NOTE | 2019-01-18 20:30 | NUR ---
EVENING/AROMATHERAPY/MUSIC/REMINISCE PT SLEEPING ON AND OFF AT THIS TIME. PT LOOKS TIRED AND WHEN ASKED IF READY FOR BED PT STATESD "YES, I'M READY" PT RELAXING IN CHAIR UNTIL BED TIME.
--- NOTE | 2019-01-18 21:14 | NUR ---
Patient alert and oriented to self. Patient isolative to self while in diningroom with other patients this evening. Patient pleasant and cooperative. Patient compliant with medications without any difficulty. Patient interacts with staff pleasantly. Provided 1:1 for emotional support. Plan to continue to encourage medication compliance and also continue to provide emotional support. Q 15 minute safety checks continued and maintained. See [facility] flowsheet for further documentation.
--- NOTE | 2019-01-19 00:16 | NUR ---
24 HR chart check completed.
--- NOTE | 2019-01-19 05:16 | NUR ---
Patient slept approx. 8 hours throughout shift. Q 15 minute safety checks continued and maintained.
--- NOTE | 2019-01-19 07:20 | NUR ---
OT NOTE Pt was seen this A.M. 1:1 for 20 minute OT session with WAREHOUSE HAND and nursing staff present for observation only. Upon arrival pt was sitting upight in the recliner. Pt identified by name and and had no complaints at this time. Pt was taken to her bedroom where she completed sit to stand from chair level with Jewel SENIOR TALENT ACQUISITION SPECIALIST and max verbal prompts for sequencing and following commands. THere she stood sink side while washing her hands and face with modA for assist with correcting retrograde posture and for set up of task. Functional mobility was then completed back to the dining room where she was left sitting upright in the maverick chair with body alarm activated and under U staff supervision. Extra time given throughout session due to slow rate of performance. Continue with rec D/C plan to return to [facility] or LTC with 24 hour supervision/assist. ZACARIAS Mohamud/Lion
[2019-01-19 08:00] VITALS: BP 132/70
--- NOTE | 2019-01-19 08:00 | NUR ---
Patient resting quietly with no c/o discomfort. Respirations easy and regular. Vital signs stable. No overt distress. DONNY HAMLIN
--- NOTE | 2019-01-19 08:30 | NUR ---
Treatment Plan meeting was held this a.m. with Dr. Singer, RN, AT, [facility] and Steam Cleaning Machine Operator in Attendance. Plan for discharge Fri/ with return to the [facility].
--- NOTE | 2019-01-19 10:19 | NUR ---
DR. RICKETTS ON UNIT TO ASSESS PATIENT.
--- NOTE | 2019-01-19 10:46 | NUR ---
PT MOSTLY NONVERBAL, WILL NOD OR SHAKE HEAD IN RESPONSE TO YES/NO QUESTIONS. ASSESSED PT WITH CLOSED-ENDED, SIMPLE YES/NO QUESTIONS. STAFF ANTICIPATES NEEDS. ADMINISTERED MEDICATIONS PER ORDER. PT ABLE TO RESPOND TO NAME, NODS OR SHAKES HEAD APPROPRIATELY TO YES/NO QUESTIONS. PT ASSISTED X2 FOR AMBULATION IN HALLWAY, WALKED UP AND DOWN SEVERAL TIMES WITH STEADY GAIT AND MINIMAL ASSIST. PT PROVIDED WITH HOC AND PHYSICAL NEEDS ARE MET. WILL CONTINUE TO MEET NEEDS AND PROVIDE EMOTIONAL SUPPORT. WILL ADMINISTER MEDICATIONS PER ORDER. Q15 MIN MONITORING PER POLICY
--- NOTE | 2019-01-19 11:29 | NUR ---
AM GROUP PT ATTENDED MORNING GROUP THERAPY AND PARTICIPATED BY WALKING WITH NURSING STUDENTS AND BY DANCING IN PLACE TO THE MUSIC. PT EXHIBITED NO AGITATION OR AGGRESSION DURING GROUP
--- NOTE | 2019-01-19 12:22 | NUR ---
Faxed CCR to [facility]
--- NOTE | 2019-01-19 12:59 | NUR ---
The patient has no complaints and is quietly watching a movie with peers and eating a snack. DONNY HAMLIN
--- NOTE | 2019-01-19 18:30 | NUR ---
The patient has no complaints and is sitting quietly in dining room with peer at this time. DONNY HAMLIN
--- NOTE | 2019-01-19 18:30 | NUR ---
Shift chart check completed.
[2019-01-19 19:00] VITALS: BP 108/65
--- NOTE | 2019-01-19 23:56 | NUR ---
P-ISOLATIVE I-REDIRECTION WITH 1:1 THERAPEUTIC INTERVENTIONS AND PRESENT REALITY. EDUCATE AND ENCOURAGE MEDICATION COMPLIANCE R-PATIENT PROVIDED NOURISHMENT AND FLUIDS AT HS. PATIENT MEDICATION COMPLIANT WITH ENCOURAGEMENT. PATIENT CONTINENT OF BOWEL AND BLADDER AT HS. PATIENT AMBULATING ON UNIT WITH ASSIST X 1. PATIENT REDIRECTABLE AND COMMUNICATES AT TIMES WITH SHORT, SIMPLE RESPONSES. P-CONTINUE ENCOURAGE MEDICATION COMPLIANCE, ENCOURAGE GROUP THERAPY WHILE AWAKE
--- NOTE | 2019-01-20 06:19 | NUR ---
PATIENT SLEPT 8 HOURS OF UNINTERRUPTED SLEEP THROUGHOUT SHIFT. Q 15 MINUTE CHECKS MAINTAINED. 24 HR chart check completed.
--- NOTE | 2019-01-20 07:43 | NUR ---
OT NOTE Pt was seen this A.M> 1:1 for 25 minute OT session with nursing staff present for observation only. Upon arrival pt was sitting uproght in the dining room. Pt identified by name and on wristband due to being non verbal throughout entire session. Requested for pt to doff and angeles B socks and pt was able to complete with modA. Sit to stand then completed from the chair level with Jewel followed by functional mobility to the table with Jewel DEVELOPER RELATIONS MANAGER and occasional Jewel to correct retrograde posture. Pt then required maxA for set up of tray and was able to complete self feeding with SBA and use of fork. Pt only took a few bites of food and two drinks of coffee which was place in a two handled spill proof cup. Pt was left sitting upright at the dining room table under [facility] staff supervision. Continue with rec D/C plan to return to NURSING HOME or LTC with 24 hour supervision/assist. ZACARIAS Mohamud/Lion
[2019-01-20 07:59] VITALS: BP 123/71
--- NOTE | 2019-01-20 08:30 | NUR ---
Treatment Plan meeting was held this a.m. with Dr. Singer, RN, AT, [facility] and It Service Technician in attendance. Plan for discharge /Friday with return to the [facility] at [place].
--- NOTE | 2019-01-20 10:25 | NUR ---
DR. KNAPP ON UNIT TO ASSESS PT, UPDATE PROVIDED.
--- NOTE | 2019-01-20 11:37 | NUR ---
AM GROUP/MUSIC AND GAMES PT ATTENDED MORNING GROUP AND PARTICIPATED BY LISTENING TO THE MUSIC AND DANCING WITH THIS SCOOP FILLER. PT IS PLEASANTLY CONFUSED AND EXHIBITED NO AGITATION OR AGGRESSION WHILE IN GROUP
--- NOTE | 2019-01-20 14:32 | NUR ---
Transportation arranged with [facility] to transport with cone picker time 12:00 p.m.
--- NOTE | 2019-01-20 15:38 | NUR ---
PM GROUP PT ATTENDED AFTERNOON GROUP THERAPY AND PARTICIPATED BY DANCING TO AND LISTENING TO MUSIC. PT ATTEMPTED CONVERSATION A FEW TIMES. PT IS PLEASANTLY CONFUSED AND EXHIBITED NO AGITATION OR AGGRESSION WHILE IN GROUP
--- NOTE | 2019-01-20 15:44 | NUR ---
Spoke with Samara Patients Power of Medicare Insurance Specialist via telephone. Notified of plans to discharge tommorow with return to the [facility] at [place]. Samara was thankful for Phone call and requested Discharge Paperwork mailed to her.
[2019-01-20 19:31] VITALS: BP 115/73
--- NOTE | 2019-01-20 22:33 | NUR ---
P-ISOLATIVE I-REDIRECTION WITH 1:1 THERAPEUTIC INTERVENTIONS AND PRESENT REALITY. EDUCATE AND ENCOURAGE MEDICATION COMPLIANCE R-PATIENT PROVIDED NOURISHMENT AND FLUIDS AT HS. PATIENT MEDICATION COMPLIANT WITH ENCOURAGEMENT. PATIENT AMBULATING ON UNIT WITH ASSIST X 1. PATIENT REDIRECTABLE AND COMMUNICATES AT TIMES WITH SHORT, SIMPLE RESPONSES. P-CONTINUE ENCOURAGE MEDICATION COMPLIANCE, ENCOURAGE GROUP THERAPY WHILE AWAKE
--- NOTE | 2019-01-21 05:58 | NUR ---
PATIENT SLEPT 8 HOURS OF UNINTERRUPTED SLEEP THROUGHOUT SHIFT. Q 15 MINUTE CHECKS MAINTAINED
--- NOTE | 2019-01-21 07:30 | NUR ---
IP denied per [employer] from 01/18 forward. Message left for [employer] to set up peer to peer. IP bertha 01/07-01/17. Ref # [id number]. Awaiting return call to set up peer to peer.
--- NOTE | 2019-01-21 07:40 | NUR ---
PATIENT SITTING IN DINING ROOM WITH PEERS, EATING BREAKFAST. NO VOICED COMPLAINTS, PLEASANT WITH INTERACTION. NO S/S OF DISTRESS NOTED. RESPS EVEN AND UNLABORED ON ROOM AIR.
--- NOTE | 2019-01-21 07:50 | NUR ---
DR. PINO INFORMED OF DISCHARGE TODAY.
[2019-01-21 08:00] VITALS: BP 107/74
[2019-01-21] MEDS ORDERED: EXELON13.3 MG/21 T ×2 (08:22→09:19)
[2019-01-21] MEDS ORDERED: ARIPIPRAZOLE10 MG PO ×2 (08:22→09:19)
[2019-01-21] MEDS ORDERED: MEMANTINE HCL10 MG PO ×2 (08:22→09:19)
[2019-01-21] MEDS ORDERED: NEOMYCIN SULFA500 MG PO ×2 (08:22→09:19)
[2019-01-21] MEDS ORDERED: BRIN20TA PO ×2 (08:22→09:19)
--- NOTE | 2019-01-21 08:30 | NUR ---
Treatment Plan meeting was held this a.m. with Dr. Singer, RN, AT, SW and Warehouse Traffic Supervisor in attendance. Plan for discharge today with Return to [facility] [place]. Transportation has been arranged with [facility] to transport with merchandise pickup/receiving associate time 12:00 p.m.
--- NOTE | 2019-01-21 08:36 | NUR ---
NO ADVERSE MOODS OR BEHAVIORS NOTED. PATIENT REMAINS AT BASELINE CONFUSION, ALERT TO PERSON ONLY. ST/LT MEMORY DEFICITS. NONSENSICAL RESPONSES TO INTERACTION. REORIENTATION REMAINS INEFFECTIVE. PATIENT PLEASANT AND SITTING IN DINING ROOM WITH PEERS. ATE AND DRANK ADEQUATELY WITH BREAKFAST. MEDICATION COMPLIANT WITH EDUCATION PROVIDED. NO S/S OF INTERACTING WITH INTERNAL STIMULI. NO DELUSIONAL THOUGHT PROCESS NOTED. NO S/S OF DISTRESS NOTED. RESPS EVEN AND UNLABORED ON ROOM AIR. GAIT STEADY WHILE AMBULATING, UNSTEADY AT TIMES. ONE ASSIST WITH ADLS AND TOILETING DUE TO INCREASED CONFUSION. Q15 MINUTE CHECKS MAINTAINED FOR SAFETY. FALLING STAR PROGRAM MAINTAINED.
--- NOTE | 2019-01-21 10:40 | NUR ---
Spoke to Neeraj at [facility] set up peer to peer for January [address] Singer to call their physician at [facility] at [phone] opt 1 opt 1 with case ref # [id number] with patient's name and . Dr. Singer notified.
--- NOTE | 2019-01-21 10:55 | NUR ---
PHYSICAL THERAPY Spoke with staff on U, pt is PATIENT ACCOUNT ANALYST x 1 in hallways and room for ambulation. Staff feels pt is at her baseline function at this time and no need for Physical Therapy. Will discontinue order at this time, please reconsult therapy if status changes, thank you. Ibeth Barlow PT
--- NOTE | 2019-01-21 11:16 | NUR ---
NURSE TO NURSE WITH ABRAN AT [facility], [phone], GIVEN AT THIS TIME.
--- NOTE | 2019-01-21 11:24 | NUR ---
Discharge paperwork faxed to The [facility] [place] Attn: Nurse.
--- NOTE | 2019-01-21 11:35 | NUR ---
AM GROUP PT ATTENDED MORNING GROUP THERAPY AND PARTICIPATED BY COLORING. PT WAS QUIET AND FOCUSED. PT WILL BE DISCHARGED FROM THE UNIT THIS AFTERNOON.
--- NOTE | 2019-01-21 12:00 | NUR ---
Shift chart check completed.
--- NOTE | 2019-01-21 12:05 | NUR ---
PATIENT OFF THE FLOOR AT THIS TIME VIA STRETCHER. ESCORTED BY AMBULANCE AND SECURITY. PATIENTS DISCHARGE PACKET AND BELONGINGS GIVEN TO AMBULANCE SERVICE. PATIENT ALERT AND BASELINE CONFUSION; NO S/S OF DISTRESS; RESPS EVEN AND UNLABORED ON ROOM AIR.
--- NOTE | 2019-01-21 15:17 | NUR ---
Patient discharged to The [facility] today. Follow-up will be with Dr Singer, visiting psychiatrist. While at [facility], pt improved. Pt became more responsive and would interact at times. Pt participated in programming as she was able. By time of discharge, pt remained pleasantly confused.
--- NOTE | 2019-01-21 15:25 | NUR ---
OCCUPATIONAL THERAPY CO-SIGN I approve of the Occupational Therapy notes written above. MINDY CHAVEZ OTR/Lion
== END 2019-01-21 12:05 | disposition home or self-care (01) | DRG 56 ==
LOC: ED 17:38 → 3N 22:23
PROVIDERS: Nurse Practitioner Family; ADMIT Psychiatry & Neurology Psychiatry
DX: G30.9 Alzheimer's disease, unspecified (principal); J18.9 Pneumonia, unspecified organism; E44.0 Moderate protein-calorie malnutrition; F02.81 Dementia in other diseases classified elsewhere, unspecified severity, with behavioral disturbance; I42.8 Other cardiomyopathies; N30.00 Acute cystitis without hematuria; F33.3 Major depressive disorder, recurrent, severe with psychotic symptoms; F63.81 Intermittent explosive disorder; D53.9 Nutritional anemia, unspecified; I50.9 Heart failure, unspecified; I11.0 Hypertensive heart disease with heart failure; M32.9 Systemic lupus erythematosus, unspecified; E78.5 Hyperlipidemia, unspecified; M41.9 Scoliosis, unspecified; I34.1 Nonrheumatic mitral (valve) prolapse; M35.9 Systemic involvement of connective tissue, unspecified; Z79.899 Other long term (current) drug therapy; Z68.20 Body mass index [BMI] 20.0-20.9, adult

== ENCOUNTER 2019-03-05 02:14 | Inpatient (IN) | payer OTHER ==
[~2019-03-05] VITALS: Wt 59.9 kg
[~2019-03-05 02:14] MED LIST changes: +ARICEPT10 M1 PO; +ARIPIPRAZOLE10 MG PO; +BRIN20TA PO; +CLARITIN10 MG PO; +COGENTIN0.5 MG PO; +COLACE100 MG PO; +DEPAKOTE DR500 MG PO; +DEPAKOTE SPRIN125 MG PO; +EXELON1 EAC1 T; +EXELON13.3 MG/21 T; +HALDOL5 MG/1 ML IM; +HYDROXYZINE HCL25 MG PO; +NEOMYCIN SULFA500 MG PO; +REMERON15 M2 PO; +TUSSIN DM 10 M237 M1 PO; +ZOLOFT25 MG PO
[2019-03-05] MEDS ORDERED: NEOMYCIN500 MG PO (02:25)
[2019-03-05 07:56] VITALS: BP 107/59
[2019-03-05 08:36] VITALS: BP 107/59
[2019-03-05 10:25] LABS: BASO % 0.4 % (0.0-1.0); EOS # 0.1 10*3/uL (0.0-0.4); EOS % 1.2 % (1.0-4.0); HEMATOCRIT 35.4 % (37.0-47.0); HEMOGLOBIN 11.7 g/dl (12.0-16.0); LYMPH # 1.1 10*3/uL (1.3-4.4); LYMPH % 13.8 % (27.0-41.0); MEAN CELL VOLUME 99.4 fl (81.0-99.0); MEAN CORPUSCULAR HGB 32.9 pg (27.0-31.0); MEAN CORPUSCULAR HGB CONC 33.1 g/dl (33.0-37.0); MEAN PLATELET VOLUME 8.5 fl (9.6-12.3); MONO # 0.6 10*3/uL (0.1-1.0); MONO % 7.2 % (3.0-9.0); NEUT # 6.2 10*3/uL (2.3-7.9); NEUT % 76.9 % (47.0-73.0); PLATELET COUNT AUTOMATED 448 10*3/uL (130-400); RED BLOOD COUNT 3.56 10*6/uL (4.10-5.10); RED CELL DISTRI WIDTH 11.8 % (0-14.5); WHITE BLOOD COUNT 8.1 10*3/uL (4.8-10.8)
[2019-03-05 10:53] LABS: ALBUMIN 3.4 gm/dl (3.1-4.5); ALKALINE PHOSPHATASE 132 U/L (45-117); BUN 10 mg/dl (7-24); CHLORIDE 107 mmol/L (98-107); CHOLESTEROL 138 mg/dL (<200); CREATININE 0.74 mg/dL (0.55-1.02); HDL CHOLESTEROL 42 mg/dl (40-60); LDL CHOLESTEROL 76 mg/dL (9-159); POTASSIUM 3.5 mmol/L (3.5-5.1); SGOT/AST 19 IU/L (3-35); SGPT/ALT 22 U/L (12-78); SODIUM 143 mmol/L (136-145); TOTAL PROTEIN 7.4 gm/dL (6.4-8.2); TRIGLYCERIDES 101 mg/dl (<150); VLDL CHOLESTEROL 20 mg/dL (6-40)
[2019-03-05 11:38] LABS: VITAMIN D, 25-HYDROXY 27.7 ng/mL (30-100)
[2019-03-05 18:01] LABS: BILIRUBIN NEGATIVE (NEGATIVE); BLOOD NEGATIVE (NEGATIVE); CLARITY CLEAR (CLEAR); COLOR YELLOW (YELLOW); GLUCOSE NEGATIVE (NEGATIVE); KETONE NEGATIVE (NEGATIVE); LEUKO ESTERASE NEGATIVE (NEGATIVE); NITRITE NEGATIVE (NEGATIVE); PH 6.5 (5.0-9.0); SPECIFIC GRAVITY 1.025 (1.005-1.030); UROBILINOGEN 0.2 E.U./dl (0.2-1.0)
[2019-03-05 18:08] LABS: MUCOUS 2+
[2019-03-05 18:22] LABS: URINE AMPHETAMINES < 1000 (1000ng/ml); URINE BARBITURATES < 200 (200ng/ml); URINE BENZODIAZEPINES < 200 (200ng/ml); URINE CANNABINOIDS (THC) < 50 (50ng/ml); URINE COCAINE < 300 (300ng/ml); URINE METHADONE < 300 (300ng/ml); URINE OPIATES < 300 (300ng/ml)
[2019-03-05 18:24] LABS: URINE PHENCYCLIDINE < 25 (25ng/ml)
[2019-03-05 19:27] VITALS: BP 112/69
[2019-03-06 07:21] VITALS: BP 102/61; BP 128/62
[2019-03-06 19:47] VITALS: BP 114/66
[2019-03-07 07:44] VITALS: BP 108/64; BP 130/68
[2019-03-07] MEDS ORDERED: ARISTADA662 MG/2.4 IM (11:14)
[2019-03-07 19:33] VITALS: BP 109/60
[2019-03-08 07:10] VITALS: BP 128/65
[2019-03-08 19:40] VITALS: BP 112/65
[2019-03-09 07:54] VITALS: BP 110/74
[2019-03-09 19:53] VITALS: BP 141/78
[2019-03-10 07:26] VITALS: BP 124/79
[2019-03-10 19:35] VITALS: BP 131/72
[2019-03-11 07:28] VITALS: BP 117/71
[2019-03-11 19:28] VITALS: BP 128/74
[2019-03-12 07:29] VITALS: BP 112/83
[2019-03-12 19:53] VITALS: BP 114/80
[2019-03-13 07:33] VITALS: BP 129/71
[2019-03-13 19:39] VITALS: BP 107/63
[2019-03-14 07:44] VITALS: BP 101/55
[2019-03-14 20:00] VITALS: BP 138/88
[2019-03-15 07:55] VITALS: BP 128/70
[2019-03-15 19:21] VITALS: BP 129/60
[2019-03-16 09:07] VITALS: BP 128/89
[2019-03-16 20:00] VITALS: BP 139/80
[2019-03-17] MEDS ORDERED: HYDROXYZINE PAM25 M1 PO (07:40)
[2019-03-17] MEDS ORDERED: MIRTAZAPINE45 MG PO (07:40)
[2019-03-17] MEDS ORDERED: LORAZEPAM1 MG PO (07:40)
[2019-03-17] MEDS ORDERED: ARISTADA882 MG/3.2 IM (07:40)
[2019-03-17] MEDS ORDERED: BRIN20TA PO (07:40)
[2019-03-17 08:04] VITALS: BP 118/87
== END 2019-03-17 13:16 | disposition home or self-care (01) | DRG 883 ==
LOC: 3N 02:14
PROVIDERS: Registered Nurse; ADMIT Psychiatry & Neurology Psychiatry
DX: F63.81 Intermittent explosive disorder (principal); E44.0 Moderate protein-calorie malnutrition; F03.91 Unspecified dementia, unspecified severity, with behavioral disturbance; Z68.43 Body mass index [BMI] 50.0-59.9, adult; D53.9 Nutritional anemia, unspecified; I50.9 Heart failure, unspecified; Z79.899 Other long term (current) drug therapy; F33.3 Major depressive disorder, recurrent, severe with psychotic symptoms; D72.810 Lymphocytopenia; D47.3 Essential (hemorrhagic) thrombocythemia; E55.9 Vitamin D deficiency, unspecified; I11.0 Hypertensive heart disease with heart failure; E78.5 Hyperlipidemia, unspecified; M32.9 Systemic lupus erythematosus, unspecified; I34.1 Nonrheumatic mitral (valve) prolapse; M41.9 Scoliosis, unspecified; M35.9 Systemic involvement of connective tissue, unspecified; Z87.440 Personal history of urinary (tract) infections